=== PATIENT | female | born 1950 | race Caucasian/White ===

== ENCOUNTER 2016-12-31 15:02 | Emergency (ER) | payer OTHER ==
[~2016-12-31] VITALS: Ht 167.6 cm; Wt 63.5 kg
[~2016-12-31 15:02] MED LIST: AMBIEN10 M1 PO; AMOXICILLIN500 M1 PO; BENTYL20 MG PO; CIPRO500 MG PO; DICYCLOMINE HCL20 MG PO; FLAGYL500 MG PO; FLUTICASONE PRO16 GM BOTH NARES; LORATADINE10 M2 PO; PERCOCET 5/31 TABLET PO; SKELAXIN400 M1 PO; SKELAXIN800 MG PO; TYLENOL REGULA325 MG PO; ULTRAM; ULTRAM50 MG PO; XANAX0.5 MG PO; ZANAFLEX4 M1 PO
[2016-12-31] MEDS ORDERED: PREDNISONE50 MG PO (18:43)
[2016-12-31 19:19] VITALS: BP 111/70
== END 2016-12-31 19:22 | disposition home or self-care (01) ==
LOC: EME 15:02
DX: M23.91 Unspecified internal derangement of right knee (principal); X50.1XXA Overexertion from prolonged static or awkward postures, initial encounter; Y92.009 Unspecified place in unspecified non-institutional (private) residence as the place of occurrence of the external cause
CPT/HCPCS: 73564; 93971; 99281; 99284; J7512